=== PATIENT | male | born 1955 | race Caucasian/White ===

== ENCOUNTER 2020-01-08 20:58 | Emergency (ER) | payer MEDICARE, SELFPAY ==
--- NOTE | ~2020-01-08 | XR_ITS ---
EXAMINATION: XR chest 2V EXAM DATE: 01/08/2020 21:29 INDICATION: Shortness of breath. TECHNIQUE: Frontal and lateral projections of the chest obtained and reviewed. Comparison is made to prior examination from 08/24/2018, 02/21/2017. FINDINGS: Right basilar 5 mm density is likely calcified granuloma. The lungs are otherwise clear. There are no pleural effusions. The cardiomediastinal silhouette is within normal limits. There is no pneumothorax suspected. The bones and soft tissues are unremarkable. IMPRESSION: No acute cardiopulmonary findings. Reviewed, dictated and finalized at location G.
[2020-01-08 20:56] VITALS: BP 192/85; PULSE 114; RESP 22; TEMP 36.5; O2SAT 97
--- NOTE | 2020-01-08 21:04 | ECG_ITS ---
Measurements Intervals [place] Rate: 121 P: 77 MT: 156 QRS: -64 QRSD: 102 T: 87 QT: 326 QTc: 464 Interpretive Statements SINUS TACHYCARDIA LEFT ANTERIOR FASCICULAR BLOCK ST-T WAVE ABNORMALITY IN ANTEROLAT/LAT LEADS- CONSIDER ISCHEMIA ABNORMAL ECG Electronically Signed On 01-09-2020 7:16:09 CDT by Semaj Erickson D.O.
--- NOTE | 2020-01-08 21:06 | ED.DIZZY ---
HPI - Dizziness General Chief Complaint: Dizziness Stated Complaint: dizziness History of Present Illness HPI Narrative: Sudden onset of dizziness earlier this evening while watching TV. Described as light headedness. Worse upon standing. Associated with racing heart rate. He reports spending the day outside in 80+ degree heat. He has not been Keeping track of his blood sugar. He has been having similar episode intermittentl for the past week. He has a h/o anxiety attacks and says that this feels similar. Related Data Home Medications Medication Instructions Recorded Confirmed amlodipine 10 mg PO DAILY 09/01/19 atorvastatin [Lipitor] 20 mg PO HS 09/01/19 insulin aspart U-100 [Novolog 16 unit SUBCUT DIRECTED 09/01/19 09/01/19 Flexpen U-100 Insulin] insulin detemir U-100 [Levemir 46 unit SUBCUT HS 09/01/19 U-100 Insulin] metoprolol succinate PO 09/01/19 Allergies Allergy/AdvReac Type Severity Reaction Status Date / Time No Known Drug Allergies Allergy Unknown Unknown Verified 01/08/20 21:19 Review of Systems Review of Systems: All systems reviewed & are unremarkable except as noted in HPI and below Constitutional: Constitutional: Denies chills and Denies fever(s) Eyes: Eyes: Denies change in vision ENT: Denies vertigo and Reports dizziness Cardiovascular: Cardiovascular: Denies chest pain and Reports rapid heart rate Respiratory: Respiratory: Denies cough and Denies dyspnea Gastrointestinal: Gastrointestinal: Denies abdominal pain, Denies diarrhea, Denies nausea and Denies vomiting Musculoskeletal: Musculoskeletal: Denies back pain Neurologic: Denies confusion, Denies syncope and Denies headache(s) Psychiatric: Psychiatric: Reports anxiety PMFSH Past Medical History Medical History Anxiety and depression Diabetes HTN (hypertension) Hyperlipidemia Social History Social History Smoking status: Former smoker Alcohol intake: current Gender identity (if verbalized by the patient): Male Exam Const: General: no acute distress and alert Nutritional Appearance: obese Orientation/consciousness: patient oriented x3 HENMT: Mouth: Yes dry mucous membranes Resp: Effort & Inspection: normal respiratory effort Auscultation: clear to auscultation bilaterally Cardio: Rate: tachycardic Rhythm: regular rhythm Heart sounds: no murmurs GI: Other: Soft NTND Skin: General skin exam: normal color Rashes: no rashes Neuro: General: patient oriented x3, moves all extremities, no focal motor deficits and CN's II-XI intact bilaterally Speech: normal speech Gait exam (Neuro): Normal gait present Extrem: General: edema bilateral Psych: Affect: Anxious affect present Course Vital Signs Vital signs: Vital Signs Temperature 36.5 C 01/08/20 20:56 Pulse Rate 114 H 01/08/20 20:56 Respiratory Rate 22 H 01/08/20 20:56 Blood Pressure 192/85 H 01/08/20 20:56 Pulse Oximetry 97 01/08/20 20:56 Temperature 36.5 C 01/08/20 20:56 Pulse Rate 93 01/08/20 23:17 Respiratory Rate 18 01/08/20 23:17 Blood Pressure 130/66 01/08/20 23:17 Pulse Oximetry 95 01/08/20 23:17 MDM - Dizziness MDM Narrative Medical decision making narrative: On exam he appears dry and he is tahcycardic. I believe his hyperglycemia and spending the day in the sun likely lead to dehydration and lightheadedness, which then triggered a panic attack. After hydration and a small dose of ativan he is feeling better and ready for discharge. Medical Records Attestation: I reviewed the patient's medical records. Lab Data Attestation: I reviewed the patient's lab results. Result diagrams: 01/08/20 21:13 01/08/20 21:13 Labs: Lab Results 01/08/20 01/08/20 01/08/20 Range/Units 21:13 21:13 21:13 WBC 15.6 H (4.5-10.0) K/mm3 RBC 4.91 (4.6-6.20) M/mm3 H
[2020-01-08] MEDS: LORAZEPAM INJ 2 MG/ML VIAL 0.5 MG IV PUSH (21:13)
[2020-01-08] MEDS: SODIUM CHLORIDE 0.9% IV 1,000 ML 999 ML IV CONT (21:14)
[2020-01-08 21:20] LABS: Basophils Absolute Auto 0.1 K/mm3 (0.0-0.1); Basophils Percent Auto 0.6 % (0.2-1.2); Eosinophils Absolute Auto 0.3 K/mm3 (0-0.3); Eosinophils Percent Auto 1.7 % (0-4.4); Hematocrit 45.7 % (42.0-52.0); Hemoglobin 15.1 g/dL (14.0-18.0); Immature Granulocyte Absolute 0.07 K/mm3 (0.00-0.031); Immature Granulocyte Percent A 0.4 % (0-0.5); Lymphocytes Absolute Auto 3.61 K/mm3 (0.9-3.2); Lymphocytes Percent Auto 23.1 % (18.3-44.2); Mean Corpuscular Hemoglobin 30.8 pg (26-34); Mean Corpuscular Volume 93.1 fl (80-100); Mean Platelet Volume 9.1 fl (7.4-10.4); Monocytes Absolute Auto 0.7 K/mm3 (0.1-0.6); Monocytes Percent Auto 4.5 % (2.6-8.5); Neutrophils Absolute Auto 10.9 K/mm3 (1.3-6.7); Neutrophils Percent Auto 69.7 % (45.5-73.1); Platelet Count Result 341 k/mm3 (150-375); Red Blood Count 4.91 M/mm3 (4.6-6.20); Red Cell Distribution Width 13.7 % (11.5-14.5); White Blood Count 15.6 K/mm3 (4.5-10.0)
[2020-01-08 21:29] LABS: Prothrombin Time 12.5 Seconds (11.1-14.7)
[2020-01-08 21:30] LABS: Partial Thromboplastin Time 24.6 SECONDS (22.3-36.8)
[2020-01-08 21:33] VITALS: BP 148/61; PULSE 98; RESP 18; O2SAT 97
[2020-01-08 21:33] LABS: Alanine Aminotransferase 35 U/L (4-50); Albumin Level 4.4 g/dL (3.5-5.1); Alkaline Phosphatase 144 U/L (38-126); Aspartate Amino Transferase 33 U/L (17-59); Bilirubin,Total 1.3 mg/dL (0.2-1.3); Blood Urea Nitrogen 12 mg/dL (9-20); Calcium 9.1 mg/dL (8.4-10.2); Carbon Dioxide 26 mmol/L (22-30); Chloride 101 mmol/L (98-107); Estimated CRCL calculation 77 ml/min; Estimated Glomerular Filt Rate > 60; Glucose 242 mg/dL (75-110); Magnesium 1.8 mg/dL (1.6-2.3); Potassium 3.7 mmol/L (3.4-5.0); Sodium 138 mmol/L (137-145)
[2020-01-08 21:44] LABS: NT Pro B Type Natriuretic Pept 109 PG/ML (5-100); Troponin I < 0.012 ng/mL (0.000-0.034)
[2020-01-08 21:47] LABS: Beta-Hydroxybutyrate/Acetoacetate 0.09 mmol/L (0.02-0.27)
[2020-01-08 22:22] VITALS: BP 130/66; PULSE 90; RESP 21; O2SAT 94
[2020-01-08 23:17] VITALS: BP 130/66; PULSE 93; RESP 18; O2SAT 95
== END 2020-01-08 23:20 | disposition home or self-care (01) ==
PROVIDERS: Emergency Provider Emergency Medicine
DX: E86.0 Dehydration (principal); F41.9 Anxiety disorder, unspecified; E11.65 Type 2 diabetes mellitus with hyperglycemia; I10 Essential (primary) hypertension; E78.5 Hyperlipidemia, unspecified; Z87.891 Personal history of nicotine dependence; Z79.4 Long term (current) use of insulin; R00.0 Tachycardia, unspecified; I44.4 Left anterior fascicular block
CPT/HCPCS: 36415; 71046; 80053; 82010; 83735; 83880; 84484; 85025; 85610; 85730; 93005; 96361; 96374; 99284; J2060; J7030

== ENCOUNTER 2020-03-24 14:33 | Emergency (ER) | payer MEDICARE, SELFPAY ==
[2020-03-24 14:45] VITALS: BP 144/62; PULSE 66; RESP 22; TEMP 36.8; O2SAT 97
--- NOTE | 2020-03-24 15:33 | ED.GENADULT ---
HPI - General Adult General Chief complaint: Eye Problems Stated complaint: Eye Pain Time Seen by Provider: 03/24/20 15:33 Source: patient Mode of arrival: ambulatory Limitations: no limitations History of Present Illness HPI narrative: 65-year-old male patient presents to the [facility] with complaints of left eye pain x4-week. Patient states it is been somewhat itchy, as well as some clear drainage. Denies any vision changes. Denies any injury to the eye that he is aware of. Related Data Home Medications Medication Instructions Recorded Confirmed amlodipine 10 mg PO DAILY 09/01/19 03/24/20 atorvastatin [Lipitor] 20 mg PO HS 09/01/19 03/24/20 insulin aspart U-100 [Novolog 16 unit SUBCUT DIRECTED 09/01/19 03/24/20 Flexpen U-100 Insulin] metoprolol succinate 25 mg PO DAILY 09/01/19 03/24/20 alprazolam 0.25 mg PO DAILY 03/24/20 03/24/20 sertraline 50 mg PO DAILY 03/24/20 03/24/20 Allergies Allergy/AdvReac Type Severity Reaction Status Date / Time No Known Drug Allergies Allergy Unknown Unknown Verified 01/08/20 21:19 Review of Systems Review of Systems: Narrative: CONSTITUTIONAL: Denies fever, chills, or sweats. EYES: Denies visual changes, positive left eye redness and clear discharge. ENT: Denies rhinorrhea, congestion, sore throat, or otalgia. CARDIOVASCULAR: Denies chest pain, palpitations, or edema. RESPIRATORY: Denies cough or dyspnea. GASTROINTESTINAL: Denies abdominal pain, nausea, vomiting, or diarrhea. GENITOURINARY: Denies dysuria or hematuria. SKIN: Denies rash or itching. MUSCULOSKELETAL: Denies back pain, joint pain, or myalgia. NEUROLOGIC: Denies headache, numbness, or weakness. PSYCHIATRIC: Denies anxiety or depression. [facility] Past Medical History Medical History Anxiety and depression Diabetes HTN (hypertension) Hyperlipidemia Social History Social History Smoking status: Former smoker Alcohol intake: current Gender identity (if verbalized by the patient): Male Comments At the time of my signature I agree with nursing past medical history, surgical, social, and family history. There is no relevant family history pertinent to the presenting complaint. Exam Narrative: Exam Narrative: GENERAL: Well-appearing, well-nourished, and in no acute distress. HEAD: Normocephalic, atraumatic. EYES: PERRLA and EOM intact without limitation or complaint of pain, no periorbital soft tissue swelling ,no erythema, warmth or tenderness noted, no obvious deformity. No crusting or swelling.no tearing or draining.No photophobia. No nystagmus No FB or lesion on lid eversion. no obvious FB or hyphens/hypopyon. injection to sclera of left eye. Lids and lashes clear. Upon dye in the left eye there was a small corneal abrasion noted to the 9:00 area. ENT: Nares clear, no rhinorrhea or epistaxis. Mucous membranes moist. NECK: Supple. No lymphadenopathy CHEST: Clear to auscultation. No respiratory distress. HEART: Regular rate and rhythm. No murmur heard. Normal peripheral pulses. ABDOMEN: Soft, nontender, nondistended, normal active bowel sounds. EXTREMITIES: Normal range of motion. No edema. SKIN: Warm, dry, no rash. NEURO: No focal deficits. Alert and oriented x3. Course Vital Signs Vital signs: Vital Signs Temperature 36.8 C 03/24/20 14:45 Pulse Rate 66 03/24/20 14:45 Respiratory Rate 22 H 03/24/20 14:45 Blood Pressure 144/62 H 03/24/20 14:45 Pulse Oximetry 97 03/24/20 14:45 Temperature 36.8 C 03/24/20 14:45 Pulse Rate 66 03/24/20 14:45 Respiratory Rate 22 H 03/24/20 14:45 Blood Pressure 144/62 H 03/24/20 14:45 Pulse Oximetry 97 03/24/20 14:45 Vital signs reviewed. The patient has been informed that they may have pre-hypertension or Hypertension based on a BP reading in the department. I recommend that the patient call the primary care provider listed on
== END 2020-03-24 15:45 | disposition home or self-care (01) ==
PROVIDERS: Emergency Provider Nurse Practitioner Family
DX: S05.02XA Injury of conjunctiva and corneal abrasion without foreign body, left eye, initial encounter (principal); X58.XXXA Exposure to other specified factors, initial encounter; F41.9 Anxiety disorder, unspecified; F32.9 Major depressive disorder, single episode, unspecified; E11.9 Type 2 diabetes mellitus without complications; I10 Essential (primary) hypertension; E78.5 Hyperlipidemia, unspecified; Z87.891 Personal history of nicotine dependence; Z79.4 Long term (current) use of insulin
CPT/HCPCS: 99213; A9270; G0463

== ENCOUNTER 2020-10-18 13:13 | Emergency (ER) | payer MEDICARE, SELFPAY ==
--- NOTE | ~2020-10-18 | XR_ITS ---
EXAMINATION: XR chest 2V DATE: 10/18/2020 13:49 INDICATION: Weakness TECHNIQUE: PA and lateral views of the chest were obtained. COMPARISON: Chest radiograph dated 01/08/2020 FINDINGS: The lungs remain clear with no focal airspace opacities, pulmonary edema, pleural effusion or pneumot horax. The cardiomediastinal silhouette is normal. Mild thoracic spondylosis. IMPRESSION: 1. No acute cardiopulmonary disease. Reviewed, dictated and finalized at location B. CONTROLLER
--- NOTE | ~2020-10-18 | CT_ITS ---
EXAMINATION: CT abdomen pelvis w con EXAM DATE: 10/18/2020 16:08 INDICATION: Abdominal pain, nausea. Symptoms one month. Generalized weakness. TECHNIQUE: Spiral CT of the abdomen and pelvis was performed following intravenous injection of 100 m L Omnipaque 350. Axial, coronal and sagittal images were reviewed. The dose-length product (DLP) fo r this examination was 1320.38 mGy-cm. The exposure was tailored according to patient size (auto mA exposure control), and iterative reconstruction (ASIR) was used as additional dose reduction techniqu e. There is no prior study for comparison. FINDINGS: There is tran mesentery appearance without mesenteric mass or lymphadenopathy. The mesente saul vasculature enhances normally. The liver, spleen, adrenal glands and pancreas are unremarkable. Gallbladder is unremarkable. No biliary obstruction. Portal and splenic veins are patent. Kidneys enhance symmetrically. There is no hydronephrosis. Exophytic 1.5 cm left renal cyst, and a smaller cyst in the lower pole. The prostate is unremarkable. The bladder is unremarkable. There is no ret roperitoneal or pelvic lymphadenopathy. There is mild scattered arteriosclerotic disease. The appendix is normal. There is mild sigmoid colonic diverticulosis. There is no adjacent inflammat ory change to suggest diverticulitis. The stomach and small bowel are unremarkable. There is expecte d amount of colonic stool. No free intraperitoneal gas. The heart is normal in size. There are n o pericardial or pleural effusions. There are bibasilar linear opacities, subsegmental atelectasis. There are no osteoblastic or osteolytic lesions identified. IMPRESSION: 1. Tran mesentery, nonspecific finding. No mesenteric lymphadenopathy, mass or venous thrombosis. 2. No acute findings. Reviewed, dictated and finalized at location A. RN IMPRESSION: 1. Tran mesentery, nonspecific finding. No mesenteric lymphadenopathy, mass o r venous thrombosis. 2. No acute findings.
[2020-10-18 13:25] VITALS: BP 143/64; PULSE 76; RESP 16; TEMP 36.2; O2SAT 95
[2020-10-18 13:41] LABS: Basophils Absolute Auto 0.1 K/mm3 (0.0-0.1); Basophils Percent Auto 0.7 % (0.2-1.2); Eosinophils Absolute Auto 0.2 K/mm3 (0-0.3); Eosinophils Percent Auto 1.5 % (0-4.4); Hematocrit 48.5 % (42.0-52.0); Hemoglobin 16.4 g/dL (14.0-18.0); Immature Granulocyte Absolute 0.05 K/mm3 (0.00-0.031); Immature Granulocyte Percent A 0.4 % (0-0.5); Lymphocytes Absolute Auto 3.95 K/mm3 (0.9-3.2); Lymphocytes Percent Auto 29.5 % (18.3-44.2); Mean Corpuscular HGB Conc 33.8 g/dl (32-36); Mean Corpuscular Hemoglobin 31.1 pg (26-34); Mean Corpuscular Volume 91.9 fl (80-100); Mean Platelet Volume 9.4 fl (7.4-10.4); Monocytes Absolute Auto 0.9 K/mm3 (0.1-0.6); Monocytes Percent Auto 6.8 % (2.6-8.5); Neutrophils Absolute Auto 8.2 K/mm3 (1.3-6.7); Neutrophils Percent Auto 61.1 % (45.5-73.1); Platelet Count Result 329 k/mm3 (150-375); Red Blood Count 5.28 M/mm3 (4.6-6.20); Red Cell Distribution Width 13.7 % (11.5-14.5); White Blood Count 13.4 K/mm3 (4.5-10.0)
--- NOTE | 2020-10-18 13:59 | ECG_ITS ---
Measurements Intervals [place] Rate: 72 P: 49 MS: 157 QRS: -50 QRSD: 100 T: 85 QT: 387 QTc: 424 Interpretive Statements SINUS RHYTHM LEFT ANTERIOR FASCICULAR BLOCK BORDERLINE ST-T WAVE ABNORMALITY- HIGH LATERAL LEADS ABNORMAL ECG Electronically Signed On 10-18-2020 18:23:32 DEVELOPMENT DISABILITY SPECIALIST by Semaj Erickson D.O.
--- NOTE | 2020-10-18 14:00 | ED.WEAKNESS ---
HPI - Weakness General Chief complaint: Weakness Stated complaint: weakness Time Seen by Provider: 10/18/20 13:37 Source: RN notes reviewed History of Present Illness HPI Narrative: Patient presents emergency department from home for weakness. Patient states since starting September 22 he has been having nausea he states that with the nausea he has been having minimal intake of foods and liquids and has been progressively becoming more weak patient states he did call on discussed with his PCP who prescribed Zofran and it was in over the telephone visit with the last dose of Zofran 2 hours ago he denies any fevers or chills vision changes, chest pain, shortness of breath, abdominal pain, vomiting, diarrhea or any other symptoms Related Data Home Medications Medication Instructions Recorded Confirmed amlodipine 10 mg PO DAILY 09/01/19 03/24/20 atorvastatin [Lipitor] 20 mg PO HS 09/01/19 03/24/20 insulin aspart U-100 [Novolog 16 unit SUBCUT DIRECTED 09/01/19 03/24/20 Flexpen U-100 Insulin] metoprolol succinate 25 mg PO DAILY 09/01/19 03/24/20 alprazolam 0.25 mg PO DAILY 03/24/20 03/24/20 sertraline 50 mg PO DAILY 03/24/20 03/24/20 Allergies Allergy/AdvReac Type Severity Reaction Status Date / Time No Known Drug Allergies Allergy Unknown Unknown Verified 01/08/20 21:19 Review of Systems Review of Systems: Narrative: Gen.: Denies fevers or chills Eyes: Denies eye pain or visual change ENT: Denies congestion Respiratory: Denies shortness of breath or cough CV: Denies chest pain or palpitations GI: Denies abdominal pain emesis or diarrhea reports nausea Musculoskeletal: Denies back pain or muscle pain Neuro: Reports weakness Skin: Denies rash Except as documented, all other systems reviewed and negative [facility]LY [facility] Past Medical History Medical History (Updated 10/18/20 @ 17:06 by Rafael Asencio DO) Anxiety and depression Diabetes HTN (hypertension) Hyperlipidemia Social History Social History Smoking status: Former smoker Alcohol intake: current Gender identity (if verbalized by the patient): Male Exam Narrative: Exam Narrative: APPEARANCE: No acute distress, nontoxic, resting in bed EYES: EOMI HEENT: Normocephalic, atraumatic, OMM RESPIRATORY: No respiratory distress Clear to auscultation bilaterally with no rhonchi wheezing or rales. CARDIOVASCULAR: Regular rate and rhythm without murmurs rubs or gallops. ABDOMINAL: Soft, nontender, nondistended, no rebound or guarding MUSCULOSKELETAl: Moves all extremities. No clubbing, cyanosis or edema. NEURO: Awake and alert. Following commands, speech normal, no focal deficits SKIN:: Warm, dry. No rashes lesions or abrasions PSYCHIATRIC: Normal affect/mood, Course Course Emergency Course: Patient able to get up and ambulate in ED with no difficulty Discussed with patient results of workup and diagnosis. Discussed need for follow-up with primary care, proper use of medication, and reasons to return to the emergency department. Patient understands and agrees to current treatment plan Vital Signs Vital signs: Vital Signs Temperature 97.2 F L 10/18/20 13:25 Pulse Rate 76 10/18/20 13:25 Respiratory Rate 16 10/18/20 13:25 Blood Pressure 143/64 H 10/18/20 13:25 Pulse Oximetry 95 10/18/20 13:25 Temperature 98.1 F 10/18/20 15:15 Pulse Rate 64 10/18/20 15:15 Respiratory Rate 16 10/18/20 15:15 Blood Pressure 153/62 H 10/18/20 15:15 Pulse Oximetry 96 10/18/20 15:15 MDM - Weakness Lab Data Result diagrams: 10/18/20 13:33 10/18/20 14:20 Labs: Lab Results 10/18/20 10/18/20 10/18/20 Range/Units 13:33 14:20 14:20 WBC 13.4 H (4.5-10.0) K/mm3 RBC 5.28 (4.6-6.20) M/mm3 Hgb 16.4 (14.0-18.0) g/dL Hct 48.5 (42.0-52.0) % MCV 91.9 (80-100) fl MCH 31.1 (26-34) pg MCHC 33.8 (32-36) g/dl RDW 13.7 (11.5-14.5) %
[2020-10-18 14:57] LABS: Add Urine Microscopic? YES; Appearance Urine Clear (Clear); Bilirubin Urine Negative (Negative); Blood Urine Negative (Negative); Color Urine Yellow (Yellow); Glucose Urine UA Negative (Negative); Ketones Urine Negative (Negative); Leukocyte Esterase Ur Negative LEU/UL (Negative); Mucus Urine Rare /lpf; Nitrate Urine Negative (Negative); Protein Urine 1+ mg/dL (Negative); RBC Urine 0-2 /hpf (0-2); Specific Grav Ur 1.013 (1.001-1.035); Squamous Epithelial Cell Urine Rare /hpf (Few); WBC Urine 0-3 /hpf
[2020-10-18 15:04] LABS: Alanine Aminotransferase 38 U/L (4-50); Albumin Level 3.8 g/dL (3.5-5.1); Alkaline Phosphatase 106 U/L (38-126); Anion Gap 5 mmol/L (8-16); Aspartate Amino Transferase 31 U/L (17-59); Bilirubin,Total 1.3 mg/dL (0.2-1.3); Blood Urea Nitrogen 9 mg/dL (9-20); Calcium 8.8 mg/dL (8.4-10.2); Carbon Dioxide 27 mmol/L (22-30); Chloride 104 mmol/L (98-107); Estimated CRCL calculation 80 ml/min; Estimated Glomerular Filt Rate > 60; Glucose 138 mg/dL (75-110); Lipase 100 U/L (23-300); Sodium 136 mmol/L (137-145)
[2020-10-18 15:15] VITALS: BP 153/62; PULSE 64; RESP 16; TEMP 36.7; O2SAT 96
[2020-10-18] MEDS: SODIUM CHLORIDE 0.9% IV 1,000 ML 999 ML IV CONT (15:20)
[2020-10-18 17:20] VITALS: BP 125/70; PULSE 76; RESP 15; TEMP 36.7; O2SAT 94
== END 2020-10-18 17:37 | disposition home or self-care (01) ==
PROVIDERS: Emergency Provider Emergency Medicine
DX: R53.1 Weakness (principal); R11.0 Nausea; E11.9 Type 2 diabetes mellitus without complications; I10 Essential (primary) hypertension; E78.5 Hyperlipidemia, unspecified; F41.9 Anxiety disorder, unspecified; F32.9 Major depressive disorder, single episode, unspecified; Z79.4 Long term (current) use of insulin; Z87.891 Personal history of nicotine dependence; I44.4 Left anterior fascicular block; R94.31 Abnormal electrocardiogram [ECG] [EKG]
CPT/HCPCS: 36415; 71046; 74177; 80053; 81001; 83690; 85025; 93005; 96360; 99284; J7030; Q9967

== ENCOUNTER 2021-05-15 07:11 | Outpatient (CLI) | payer MEDICARE, SELFPAY ==
[2021-05-15 07:30] LABS: Hematocrit 43.4 % (42.0-52.0); Hemoglobin 13.9 g/dL (14.0-18.0); Mean Corpuscular Hemoglobin 31.9 pg (26-34); Mean Corpuscular Volume 99.5 fl (80-100); Mean Platelet Volume 9.1 fl (7.4-10.4); Platelet Count Result 250 k/mm3 (150-375); Red Blood Count 4.36 M/mm3 (4.6-6.20); Red Cell Distribution Width 13.6 % (11.5-14.5); White Blood Count 13.2 K/mm3 (4.5-10.0)
[2021-05-15 07:42] LABS: Alanine Aminotransferase 46 U/L (4-50); Albumin Level 4.3 g/dL (3.5-5.1); Alkaline Phosphatase 99 U/L (38-126); Anion Gap 10 mmol/L (8-16); Aspartate Amino Transferase 32 U/L (17-59); Bilirubin,Total 1.1 mg/dL (0.2-1.3); Blood Urea Nitrogen 15 mg/dL (9-20); Carbon Dioxide 27 mmol/L (22-30); Chloride 102 mmol/L (98-107); Cholesterol 110 mg/dL (0-200); Estimated Glomerular Filt Rate > 60; Glucose 153 mg/dL (65-110); HDL Direct 25 mg/dL; Potassium 4.4 mmol/L (3.4-5.0); Sodium 139 mmol/L (137-145); Triglycerides 93 mg/dL (<150)
[2021-05-15 07:53] LABS: LDL Cholesterol Direct 67 mg/dL
[2021-05-15 08:10] LABS: Prostate Specific Antigen 2.2 ng/mL (< OR = 4.0)
[2021-05-15 08:44] LABS: Folic Acid 5.2 ng/mL (2.76->20)
== END 2021-05-15 07:12 | disposition home or self-care (01) ==
PROVIDERS: PCP Internal Medicine; Visit Provider Physician Assistant
DX: Z12.5 Encounter for screening for malignant neoplasm of prostate (principal); E11.9 Type 2 diabetes mellitus without complications; R53.83 Other fatigue
CPT/HCPCS: 36415; 80053; 80061; 82607; 82746; 84153; 84443; 85027; G0103

== ENCOUNTER 2021-06-26 12:08 | Emergency (ER) | payer MEDICARE, SELFPAY ==
[2021-06-26 12:19] VITALS: BP 144/62; PULSE 77; RESP 18; TEMP 36.6; O2SAT 97
[2021-06-26 12:25] VITALS: BP 144/62; PULSE 77; RESP 18; TEMP 36.6; O2SAT 97
--- NOTE | 2021-06-26 12:31 | ED.SKABFB ---
HPI - Skin/Abscess/Foreign Bdy General Chief complaint: Skin/Abscess/Foreign Body Stated complaint: Bite Time Seen by Provider: 06/26/21 12:30 Source: patient and RN notes reviewed Mode of arrival: ambulatory Limitations: no limitations History of Present Illness HPI narrative: Mike is a 66-year-old male [facility] Patient has a small bite on his left perfect left reina. Area is approximately 1 cm with minimal erythema. Patient states 3 days ago he was cleaning out a storage shed is unsure if he was bit or hit it on something. Patient denies any fever, chills, or any other symptoms. Patient is a diabetic so he just wanted to get the wound checked out MD complaint: insect bite/sting Related Data Home Medications Medication Instructions Recorded Confirmed insulin aspart U-100 [Novolog 16 unit SUBCUT DIRECTED 09/01/19 06/26/21 Flexpen U-100 Insulin] metoprolol succinate 25 mg PO DAILY 09/01/19 06/26/21 alprazolam 0.25 mg PO DAILY 03/24/20 06/26/21 insulin lispro 100 unit/mL 5.5 unit SUBCUT QHS 10/27/20 06/26/21 subcutaneous half-unit pen empagliflozin [Jardiance] 10 mg PO BID 06/26/21 06/26/21 Allergies Allergy/AdvReac Type Severity Reaction Status Date / Time No Known Drug Allergies Allergy Unknown Unknown Verified 06/26/21 12:18 Review of Systems Review of Systems: CONSTITUTIONAL: Denies body aches, fever, chills, or sweats. EYES: Denies visual changes, redness, or discharge. ENT: Denies rhinorrhea, congestion, sore throat, or otalgia. CARDIOVASCULAR: Denies chest pain, palpitations, or edema. RESPIRATORY: Denies cough or dyspnea. GASTROINTESTINAL: Denies abdominal pain, nausea, vomiting, or diarrhea. GENITOURINARY: Denies dysuria or hematuria. SKIN: Denies rash, itching, bite left reina MUSCULOSKELETAL: Denies back pain, joint pain, or myalgia. NEUROLOGIC: Denies headache, numbness, tingling, or weakness. PSYCH: Denies depression or anxiety. [facility] Past Medical History Medical History (Updated 06/26/21 @ 12:43 by JOSEPH Benavidez) Anxiety and depression Diabetes HTN (hypertension) Hyperlipidemia Family History Family History Father Heart disease Mother Depression Social History Social History Smoking status: Former smoker Alcohol intake: current Gender identity (if verbalized by the patient): Male Comments At time of signature, I have reviewed and agree with nursing past medical, surgical, social and family history unless otherwise noted. Please see nursing chart for further information. There is no relevant family history pertinent to the presenting complaint Exam Narrative: GENERAL: Well-appearing, well-nourished, and in no acute distress. HEAD: Normocephalic, atraumatic. EYES: EOMI. No redness or drainage. Conjunctivae normal. ENT: Mucous membranes pink and moist. Nares clear. No rhinorrhea. TMs normal bilaterally. Throat normal. Uvula midline. NECK: Normal AROM. Supple. No lymphadenopathy. CHEST: No respiratory distress. MUSCULOSKELETAL: No bony tenderness. 1cm raised area left reina, scabbed center, minimal erythema, no edema, no drainage, no increase in size. EXTREMITIES: Normal range of motion. No edema. SKIN: Warm, dry, no rash. Capillary refill normal. Normal skin turgor. NEURO: No focal deficits. Alert and oriented x3. Gait steady. PSYCH: Normal affect. No signs of depression or anxiety. Course Vital Signs Vital signs: Vital Signs Temperature 36.6 C 06/26/21 12:19 Pulse Rate 77 06/26/21 12:19 Respiratory Rate 18 06/26/21 12:19 Blood Pressure 144/62 H 06/26/21 12:19 Pulse Oximetry 97 06/26/21 12:19 Temperature 36.6 C 06/26/21 12:25 Pulse Rate 77 06/26/21 12:25 Respiratory Rate 18 06/26/21 12:25 Blood Pressure 144/62 H 06/26/21 12:25 Pulse Oximetry 97 06/26/21 12:25 Re
== END 2021-06-26 12:45 | disposition home or self-care (01) ==
PROVIDERS: Emergency Provider Nurse Practitioner Family; PCP Internal Medicine
DX: S80.862A Insect bite (nonvenomous), left lower leg, initial encounter (principal); W57.XXXA Bitten or stung by nonvenomous insect and other nonvenomous arthropods, initial encounter; Z87.891 Personal history of nicotine dependence; E11.9 Type 2 diabetes mellitus without complications; I10 Essential (primary) hypertension; E78.5 Hyperlipidemia, unspecified; F41.9 Anxiety disorder, unspecified; Z79.4 Long term (current) use of insulin; F32.A Depression, unspecified
CPT/HCPCS: 99211; G0463

== ENCOUNTER 2022-01-01 09:16 | Emergency (ER) | payer MEDICARE, SELFPAY ==
[2022-01-01 09:24] VITALS: BP 142/62; PULSE 69; RESP 14; TEMP 36.5; O2SAT 95
--- NOTE | 2022-01-01 09:45 | ED.LOWEXIN ---
HPI - Extremity Injury (Lower) General Chief Complaint: Upper Respiratory Infection Stated Complaint: Chest Congestion/Cough Time Seen by Provider: 01/01/22 09:45 Source: patient Mode of arrival: ambulatory Limitations: no limitations History of Present Illness HPI Narrative: Mr. Anders is a 66-year-old male patient presenting to the clinic today with complaints of cough and congestion x2 days. He reports he has been coughing so hard that is causing some stomach pain. History of bronchitis in the past. He denies any known exposure to COVID, flu, or strep. He denies any fever or chills. He says he has a scratchy throat from some drainage going in the back of his throat. Related Data Home Medications Medication Instructions Recorded Confirmed insulin aspart U-100 [Novolog 16 unit SUBCUT DIRECTED 09/01/19 11/07/21 Flexpen U-100 Insulin] alprazolam 0.25 mg PO DAILY 03/24/20 11/07/21 insulin lispro 100 unit/mL 5.5 unit SUBCUT QHS 10/27/20 11/07/21 subcutaneous half-unit pen empagliflozin [Jardiance] 10 mg PO BID 06/26/21 11/07/21 Allergies Allergy/AdvReac Type Severity Reaction Status Date / Time No Known Drug Allergies Allergy Unknown Unknown Verified 01/01/22 09:49 Review of Systems Review of Systems: Pertinent positives per HPI. Patient denies any fever, chills, rash, headache, visual changes, dizziness, shortness of breath, chest pain, palpitations, nausea, vomiting, diarrhea, constipation, abdominal pain, or any urinary issues. [facility] Past Medical History Medical History Anxiety and depression Diabetes HTN (hypertension) Hyperlipidemia Family History Family History Father Heart disease Mother Depression Social History Social History Smoking status: Former smoker Alcohol intake: current Gender identity (if verbalized by the patient): Male Comments At the time of my signature, I reviewed and agree with the nursing past medical, surgical, social, and family history. There is no relevant family history pertinent to the patient complaint. Exam Narrative: General: Well-developed, well nourished, in no apparent distress Head: Normocephalic, atraumatic Eyes: Pupils equally round and reactive to light bilaterally, EOM intact, sclera and conjunctive clear, no discharge, lids normal Ears: TMs intact and dull, ear canals clear, no drainage, grossly hearing normal. Nose: Nares patent, clear nasal discharge, no inflammation, no sinus tenderness. Mouth: Oropharynx without lesions or masses, good dentition, MMM. Oropharynx red with tonsil stone to the right Neck: Supple, trachea midline, no enlargement of anterior or posterior cervical nodes, no thyroid masses or goiter palpable. Cardio: Regular rate and rhythm, s1 and s2 normal, no murmur appreciated. Resp: Inspiratory and expiratory wheezing throughout lung gonzalez posteriorly, no rhonchi, rales, or rubs Course Course Emergency Course: Portions of this record may have been created with voice recognition software. Level of Care: Express Care Visit Vital Signs Vital signs: Vital Signs Temperature 36.5 C 01/01/22 09:24 Pulse Rate 69 01/01/22 09:24 Respiratory Rate 14 01/01/22 09:24 Blood Pressure 142/62 H 01/01/22 09:24 Pulse Oximetry 95 01/01/22 09:24 Temperature 36.5 C 01/01/22 09:24 Pulse Rate 69 01/01/22 09:24 Respiratory Rate 14 01/01/22 09:24 Blood Pressure 142/62 H 01/01/22 09:24 Pulse Oximetry 95 01/01/22 09:24 Vital signs reviewed MDM - Extremity Injury (Lower) MDM Narrative Medical decision making narrative: At the time of visit patient is resting comfortably on the exam table. Patient has expiratory wheezing throughout his lung gonzalez. He also has a clear nasal drainage and postnasal drip. I suspect the patient
== END 2022-01-01 09:52 | disposition home or self-care (01) ==
PROVIDERS: Emergency Provider Nurse Practitioner Family; PCP Internal Medicine
DX: J40 Bronchitis, not specified as acute or chronic (principal); E11.9 Type 2 diabetes mellitus without complications; I10 Essential (primary) hypertension; E78.5 Hyperlipidemia, unspecified; F41.9 Anxiety disorder, unspecified; F32.A Depression, unspecified; Z87.891 Personal history of nicotine dependence; Z79.4 Long term (current) use of insulin
CPT/HCPCS: 99213; G0463

== ENCOUNTER 2022-04-16 15:31 | Emergency (ER) | payer MEDICARE, SELFPAY ==
[2022-04-16 15:33] VITALS: BP 165/75; PULSE 90; RESP 13; TEMP 36.8; O2SAT 96
--- NOTE | 2022-04-16 15:38 | ECG_ITS ---
Measurements Intervals [place] Rate: 82 P: 51 [place]: 155 QRS: -35 QRSD: 101 T: 81 QT: 367 QTc: 429 Interpretive Statements SINUS RHYTHM MARKED LEFT AXIS DEVIATION [QRS AXIS < -30] PATTERN CONSISTENT WITH PULMONARY DISEASE COMPARED TO ECG 10/18/2020 17:26:41 NO SIGNIFICANT CHANGE Electronically Signed On 04-16-2022 20:31:33 CDT by Natacha Funes M.D.
--- NOTE | 2022-04-16 15:39 | ED.GENADULT ---
HPI - General Adult General Chief complaint: Weakness Stated complaint: hypoglycemia Time Seen by Provider: 04/16/22 15:33 History of Present Illness HPI narrative: Pt felt a little dizzy and his implanted glucose device read 160 and his finger stick was off by 30 and he got anxious. EMS was in 170's. Pt feels better now Related Data Home Medications Medication Instructions Recorded Confirmed insulin aspart U-100 100 unit/mL 16 unit subcut DIRECTED 09/01/19 01/01/22 (3 mL) subcutaneous pen (Novolog Flexpen U-100 Insulin aspart) alprazolam 0.25 mg tablet 0.25 mg PO DAILY 03/24/20 01/01/22 insulin lispro 100 unit/mL 5.5 unit subcut QHS 10/27/20 01/01/22 subcutaneous half-unit pen (Humalog Jose KwikPen (U-100)) empagliflozin 10 mg tablet 10 mg PO BID 06/26/21 01/01/22 (Jardiance) Allergies Allergy/AdvReac Type Severity Reaction Status Date / Time No Known Drug Allergies Allergy Unknown Unknown Verified 01/01/22 09:49 Review of Systems Review of Systems: All systems reviewed & are unremarkable except as noted in HPI and below PMFSH Past Medical History Medical History (Updated 04/16/22 @ 17:24 by Wilmer Bee III, DO) Anxiety and depression Diabetes HTN (hypertension) Hyperlipidemia Family History Family History Father Heart disease Mother Depression Social History Social History Smoking status: Former smoker Alcohol intake: current Gender identity (if verbalized by the patient): Male Exam Const: General: healthy appearing Nutritional Appearance: well nourished Orientation/consciousness: patient oriented x3 Limitations: no limitations HENMT: Head: normal to inspection Eyes: Conjunctivae: conjunctivae normal EOM: EOMs intact bilaterally Chest: Chest palpation & inspection: normal inspection of the chest Resp: Effort & Inspection: normal respiratory effort Auscultation: clear to auscultation bilaterally Cardio: Rate: regular rate Rhythm: regular rhythm GI: GI Palp: Yes Soft to palpation Auscultation: normal bowel sounds Skin: General skin exam: normal color Rashes: no rashes Wounds: no wounds Neuro: General: patient oriented x3 Speech: normal speech Extrem: General: normal to inspection and no clubbing, cyanosis or edema Psych: Mental Status: mental status grossly normal Affect: normal affect Attitude: cooperative Course Vital Signs Vital signs: Vital Signs Temperature 98.2 F 04/16/22 15:33 Pulse Rate 90 04/16/22 15:33 Respiratory Rate 13 04/16/22 15:33 Blood Pressure 165/75 H 04/16/22 15:33 Pulse Oximetry 96 04/16/22 15:33 Temperature 98.2 F 04/16/22 15:33 Pulse Rate 99 04/16/22 18:29 Respiratory Rate 16 04/16/22 18:29 Blood Pressure 110/82 04/16/22 18:29 Pulse Oximetry 100 04/16/22 18:29 Medical Decision Making Vital Signs Vital Signs: Vital Signs Temperature 98.2 F 04/16/22 15:33 Pulse Rate 90 04/16/22 15:33 Respiratory Rate 13 04/16/22 15:33 Blood Pressure 165/75 H 04/16/22 15:33 Pulse Oximetry 96 04/16/22 15:33 Temperature 98.2 F 04/16/22 15:33 Pulse Rate 99 04/16/22 18:29 Respiratory Rate 16 04/16/22 18:29 Blood Pressure 110/82 04/16/22 18:29 Pulse Oximetry 100 04/16/22 18:29 Lab Data Result diagrams: 04/16/22 15:47 04/16/22 15:47 Labs: Lab Results 04/16/22 04/16/22 04/16/22 Range/Units 15:35 15:47 15:47 WBC 12.3 H (4.5-10.0) K/mm3 RBC 5.43 (4.6-6.20) M/mm3 Hgb 16.6 (14.0-18.0) g/dL Hct 51.5 (42.0-52.0) % MCV 94.8 (80-100) fl MCH 30.6 (26-34) pg MCHC 32.2 (32-36) g/dl RDW 14.8 H (11.5-14.5) % Plt Count 304 (150-375) k/mm3 MPV 9.0 (7.4-10.4) fl Immature Gran % (Auto) 0.4 (0-0.5) % Neut % (Auto) 70.1 (45.5-73.1) % Lymph %
[2022-04-16 15:53] LABS: Basophils Absolute Auto 0.1 K/mm3 (0.0-0.1); Basophils Percent Auto 0.6 % (0.2-1.2); Eosinophils Absolute Auto 0.2 K/mm3 (0-0.3); Eosinophils Percent Auto 1.5 % (0-4.4); Hematocrit 51.5 % (42.0-52.0); Hemoglobin 16.6 g/dL (14.0-18.0); Immature Granulocyte Absolute 0.05 K/mm3 (0.00-0.031); Immature Granulocyte Percent A 0.4 % (0-0.5); Lymphocytes Absolute Auto 2.75 K/mm3 (0.9-3.2); Lymphocytes Percent Auto 22.4 % (18.3-44.2); Mean Corpuscular HGB Conc 32.2 g/dl (32-36); Mean Corpuscular Hemoglobin 30.6 pg (26-34); Mean Corpuscular Volume 94.8 fl (80-100); Monocytes Absolute Auto 0.6 K/mm3 (0.1-0.6); Neutrophils Absolute Auto 8.6 K/mm3 (1.3-6.7); Neutrophils Percent Auto 70.1 % (45.5-73.1); Platelet Count Result 304 k/mm3 (150-375); Red Blood Count 5.43 M/mm3 (4.6-6.20); Red Cell Distribution Width 14.8 % (11.5-14.5); White Blood Count 12.3 K/mm3 (4.5-10.0)
[2022-04-16 16:03] LABS: Alanine Aminotransferase 31 U/L (6-50); Albumin Level 4.2 g/dL (3.5-5.1); Alkaline Phosphatase 124 U/L (38-126); Anion Gap 13 mmol/L (8-16); Aspartate Amino Transferase 34 U/L (17-59); Bilirubin,Total 0.8 mg/dL (0.2-1.3); Blood Urea Nitrogen 12 mg/dL (9-20); Carbon Dioxide 25 mmol/L (22-30); Chloride 101 mmol/L (98-107); Estimated CRCL calculation 75 ml/min; Estimated Glomerular Filt Rate > 60; Glucose 224 mg/dL (65-110); Potassium 3.9 mmol/L (3.4-5.0); Sodium 139 mmol/L (137-145)
[2022-04-16 16:34] LABS: Glucose Point of Care 251 mg/dl (65-105)
[2022-04-16] MEDS: SODIUM CHLORIDE 0.9% IV 1,000 ML 999 ML IV CONT (17:03)
--- NOTE | 2022-04-16 17:03 | PC.NURSE ---
Pt requests insulin dose to be adjusted to 3 units per his sliding scale. Dr. Bee aware and ok with new order.
[2022-04-16] MEDS: INSULIN HUMAN REGULAR (*BKC) 100 UNITS/ML IV PUSH (17:04)
[2022-04-16 17:07] VITALS: BP 141/59; PULSE 69; RESP 19; O2SAT 96
[2022-04-16 18:29] VITALS: BP 110/82; PULSE 99; RESP 16; O2SAT 100
== END 2022-04-16 18:30 | disposition home or self-care (01) ==
PROVIDERS: Emergency Provider Emergency Medicine; PCP Internal Medicine
DX: R42 Dizziness and giddiness (principal); F41.9 Anxiety disorder, unspecified; F32.9 Major depressive disorder, single episode, unspecified; E11.9 Type 2 diabetes mellitus without complications; Z79.4 Long term (current) use of insulin; I10 Essential (primary) hypertension; E78.5 Hyperlipidemia, unspecified
CPT/HCPCS: 36415; 80053; 82948; 85025; 93005; 96361; 96374; 99284; J1815; J7030

== ENCOUNTER 2022-12-02 09:22 | Outpatient (CLI) | payer MEDICARE, SELFPAY ==
[2022-12-02 09:45] LABS: Hematocrit 48.1 % (42.0-52.0); Hemoglobin 15.4 g/dL (14.0-18.0); Mean Corpuscular Hemoglobin 31.3 pg (26-34); Mean Corpuscular Volume 97.8 fl (80-100); Mean Platelet Volume 9.4 fl (7.4-10.4); Platelet Count Result 261 k/mm3 (150-375); Red Blood Count 4.92 M/mm3 (4.6-6.20); Red Cell Distribution Width 14.5 % (11.5-14.5)
[2022-12-02 09:58] LABS: Alanine Aminotransferase 29 U/L (6-50); Alkaline Phosphatase 109 U/L (38-126); Anion Gap 5 mmol/L (8-16); Aspartate Amino Transferase 22 U/L (17-59); Bilirubin,Total 0.8 mg/dL (0.2-1.3); Blood Urea Nitrogen 15 mg/dL (9-20); Calcium 8.5 mg/dL (8.4-10.2); Carbon Dioxide 31 mmol/L (22-30); Chloride 104 mmol/L (98-107); Cholesterol 115 mg/dL (0-200); Estimated Glomerular Filt Rate > 60; Glucose 135 mg/dL (65-110); HDL Direct 23 mg/dL; Potassium 4.2 mmol/L (3.4-5.0); Sodium 140 mmol/L (137-145); Triglycerides 90 mg/dL (<150)
[2022-12-02 10:10] LABS: LDL Cholesterol Direct 74 mg/dL
[2022-12-02 10:13] LABS: Creatinine Urine 72.4 mg/dL
[2022-12-02 10:17] LABS: MALB Creatinine Ratio 33.6 mg/g (0-30); Microalbumin Urine Random 24.3 mg/L (0-16.7)
[2022-12-02 10:28] LABS: Prostate Specific Antigen 2.2 ng/mL (< OR = 4.0); Thyroid Stimulating Hormone 0.902 uIU/mL (0.465-4.680)
[2022-12-02 11:04] LABS: Folic Acid 4.7 ng/mL (2.76->20)
== END 2022-12-02 09:23 | disposition home or self-care (01) ==
PROVIDERS: PCP Physician Assistant; Visit Provider Physician Assistant
DX: R53.83 Other fatigue (principal); Z12.5 Encounter for screening for malignant neoplasm of prostate; E11.9 Type 2 diabetes mellitus without complications; I10 Essential (primary) hypertension
CPT/HCPCS: 36415; 80053; 80061; 82043; 82607; 82746; 84153; 84443; 85027; G0103

== ENCOUNTER 2023-12-16 09:28 | Outpatient (CLI) | payer MEDICARE, SELFPAY ==
[2023-12-16 10:21] LABS: Basophils Absolute Auto 0.1 K/mm3 (0.0-0.1); Basophils Percent Auto 0.7 % (0.2-1.2); Eosinophils Absolute Auto 0.3 K/mm3 (0-0.3); Eosinophils Percent Auto 2.3 % (0-4.4); Hematocrit 51.5 % (42.0-52.0); Hemoglobin 16.3 g/dL (14.0-18.0); Immature Granulocyte Absolute 0.04 K/mm3 (0.00-0.031); Immature Granulocyte Percent A 0.3 % (0-0.5); Lymphocytes Absolute Auto 2.31 K/mm3 (0.9-3.2); Mean Corpuscular HGB Conc 31.7 g/dl (32-36); Mean Corpuscular Hemoglobin 31.5 pg (26-34); Mean Corpuscular Volume 99.4 fl (80-100); Mean Platelet Volume 9.5 fl (7.4-10.4); Monocytes Absolute Auto 0.8 K/mm3 (0.1-0.6); Monocytes Percent Auto 6.2 % (2.6-8.5); Neutrophils Absolute Auto 8.7 K/mm3 (1.3-6.7); Neutrophils Percent Auto 71.5 % (45.5-73.1); Platelet Count Result 273 k/mm3 (150-375); Red Blood Count 5.18 M/mm3 (4.6-6.20); Red Cell Distribution Width 14.1 % (11.5-14.5); White Blood Count 12.1 K/mm3 (4.5-10.0)
[2023-12-16 10:37] LABS: Alanine Aminotransferase 35 U/L (6-50); Albumin Level 4.4 g/dL (3.5-5.1); Alkaline Phosphatase 108 U/L (38-126); Anion Gap 6 mmol/L (4-12); Aspartate Amino Transferase 28 U/L (17-59); Bilirubin,Total 1.2 mg/dL (0.2-1.3); Blood Urea Nitrogen 14 mg/dL (9-20); Calcium 8.8 mg/dL (8.4-10.2); Carbon Dioxide 29 mmol/L (22-30); Chloride 104 mmol/L (98-107); Cholesterol 120 mg/dL (0-200); Estimated Glomerular Filt Rate > 60; Glucose 157 mg/dL (65-110); HDL Direct 27 mg/dL; Potassium 4.2 mmol/L (3.4-5.0); Sodium 139 mmol/L (137-145); Triglycerides 98 mg/dL (<150)
[2023-12-16 10:47] LABS: LDL Cholesterol Direct 76 mg/dL
[2023-12-16 10:57] LABS: Creatinine Urine 67.6 mg/dL
[2023-12-16 11:02] LABS: Microalbumin Urine Random 21.6 mg/L (0-16.7)
[2023-12-16 11:09] LABS: Prostate Specific Antigen 2.4 ng/mL (< OR = 4.0)
[2023-12-16 11:10] LABS: Thyroid Stimulating Hormone 0.991 uIU/mL (0.465-4.680)
[2023-12-16 11:32] LABS: Hemoglobin A1C 7.3 % (<5.7)
[2023-12-16 11:45] LABS: Folic Acid 5.5 ng/mL (2.76->20)
== END 2023-12-16 09:29 | disposition home or self-care (01) ==
LOC: ANHLAB 09:32
PROVIDERS: PCP Physician Assistant; Visit Provider Physician Assistant
DX: Z12.5 Encounter for screening for malignant neoplasm of prostate (principal); E11.9 Type 2 diabetes mellitus without complications; R53.83 Other fatigue
CPT/HCPCS: 36415; 80053; 80061; 82043; 82607; 82746; 83036; 84153; 84443; 85025; G0103

== ENCOUNTER 2025-05-13 07:09 | Outpatient (CLI) | payer MEDICARE, SELFPAY ==
--- NOTE | 2025-05-13 07:29 | ECHO_ITS ---
Patient Info Name: Mike Anders Age: 70 years : 1955 Gender: Male Ht: 69 in Wt: 222 lbs BSA: 2.25 m2 HR: 72 bpm BP: 122 / 65 mmHg Technical Quality: Good Exam Date: 05/13/2025 8:17 AM Patient Status: O Admit Date: 05/13/2025 Exam Type: CA echo doppler color flow Complete two-dimensional, color flow and Doppler transthoracic echocardiogram is performed. Oral Health Therapist: Rebecca James Attending Provider: Semaj Erickson DO Summary 1. Complete two-dimensional, color flow and Doppler transthoracic echocardiogram is performed. 2. Left ventricular chamber dimension is normal. 3. Left ventricular systolic function is normal, estimated at 60-65. 4. There is mild concentric increased left ventricular wall thickness. 5. The left ventricular diastolic function is grade I diastolic dysfunction. 6. E/e' 14 is mildly elevated. 7. Left atrial chamber dimension is mildly enlarged. 8. The aortic valve is not well visualized. Cannot determine number of aortic valve leaflets. 9. There is moderate aortic valve sclerosis. 10. There is very mild aortic valve stenosis with a peak velocity of 178 cm/s, mean gradient of 6 mmHg, and aortic valve area of 2.2 cm2. 11. The mitral valve has a moderately calcified annulus. 12. There is trace tricuspid valve regurgitation. 13. No pulmonary hypertension, estimated pulmonary arterial systolic pressure is 25 mmHg. Left Ventricle E/e' 14 is mildly elevated. Left ventricular chamber dimension is normal. Left ventricular systolic function is normal, estimated at 60-65. There is mild concentric increased left ventricular wall thickness. The left ventricular diastolic function is grade I diastolic dysfunction. Right Ventricle Right ventricular chamber dimension is normal. Right ventricular systolic function is normal and with normal TAPSE 2.3 cm. Left Atria Left atrial chamber dimension is mildly enlarged. Right Atria Right atrial chamber dimension is normal. Aortic Valve The aortic valve is not well visualized. Cannot determine number of aortic valve leaflets. There is moderate aortic valve sclerosis. There is very mild aortic valve stenosis with a peak velocity of 178 cm/s, mean gradient of 6 mmHg, and aortic valve area of 2.2 cm2. There is no aortic valve regurgitation. Pulmonic Valve There is no pulmonic regurgitation. Mitral Valve The mitral valve has a moderately calcified annulus. There is no mitral valve stenosis. There is no mitral valve regurgitation. Tricuspid Valve There is trace tricuspid valve regurgitation. No pulmonary hypertension, estimated pulmonary arterial systolic pressure is 25 mmHg. Pericardium/Pleural There is no pericardial effusion. Inferior Vena Cava Normal inferior vena cava with >50% collapse upon inspiration consistent with normal right atrial pressure, 5 mmHg. Aorta The aortic root size at the sinus of Valsalva is normal. Left Ventricular Outflow Tract Name Value Normal LVOT 2D LVOT Diameter 2.0 cm LVOT Doppler LVOT Peak Velocity 121 cm/s LVOT Peak Gradient 6 mmHg LVOT Mean Gradient 3 mmHg LVOT VTI 29 cm LVOT VTI/AV VTI Ratio 0.7 LVOT Stroke Volume 91 ml LVOT CO 6.5 l/min LVOT CI 2.9 l/min/m2 Pulmonic Valve Name Value Normal RVOT Doppler RVOT Peak Velocity 103 cm/s RVOT Peak Gradient 4 mmHg PV Doppler PV Peak Velocity 106 cm/s PV Peak Gradient 4 mmHg Mitral Valve Name Value Normal MV Diastolic Function MV E Peak Velocity 110 cm/s MV A Peak Velocity 90 cm/s MV E/A 1.2 MV Decel Time (PW) 254 ms MV Annular TDI MV E/e' (Septal) 14.7 MV E/e' (Lateral) 13.9 MV E/e' (Average) 14.3 Tricuspid Valve Name Value Normal TV Regurgitation Doppler TR Peak Velocity 225 cm/s TR Peak Gradient 20 mmHg Estimated PAP/RSVP RA Pressure 5 mmHg <=5 PA Systolic Pressure 25 mmHg <36 RV Systolic Pressure 25 mmHg <36 Aortic Valve Name Value Normal AV Doppler AV Peak Velocity 178 cm/s AV Peak Gradient 13 mmHg AV Mean Gradient 6 mmHg AV VTI 42 cm AV Area (Cont Eq VTI) 2.2 cm2 >=3.0 AV Area (Cont Eq Bhaskar) 2.1 cm2 AV DI (Bhaskar) 0.68 AV Regurgitation 2D LVOT Area 3.1 cm2 Ventricles Name Value Normal LV Dimensions 2D/MM IVS Diastolic Thickness (2D) 1.1 cm 0.6-1.0 LVID Diastole (2D) 4.1 cm 4.2-5.8 LVIW Diastolic Thickness (2D) 1.3 cm 0.6-1.0 LVID Systole (2D) 2.5 cm 2.5-4.0 LVOT Diameter 2.0 cm LV Mass (2D Cubed) 177.22 g 88.00-224.00 LV Mass Index (2D Cubed) 79 g/m2 49-115 Relative Wall Thickness (2D) 0.66 <=0.42 LV Fractional Shortening/Ejection Fraction 2D/MM LV Fractional Shortening (2D) 40 % 25-43 LV EF (2D Teichholz) 71 % LV Diastolic Volume (4C MOD) 93 ml LV EF (4C MOD) 60 % LV Diastolic Volume (2C MOD) 112 ml LV EF (2C MOD) 67 % LV Diastolic Volume (BP MOD) 102 ml 62-150 LV Diastolic Volume Index (BP MOD) 45 ml/m2 34-74 LV Systolic Volume (BP MOD) 38 ml 21-61 LV Systolic Volume Index (BP MOD) 17 ml/m2 11-31 LV EF (BP MOD) 62 % 52-72 LV Diastolic Length (4C) 7.9 cm LV Systolic Length (4C) 6.8 cm LV Stroke Volume (4C MOD) 55 ml Atria Name Value Normal LA Dimensions LA Volume (4C A-L) 49 ml LA Volume (BP A-L) 42 ml RA Dimensions RA Area (4C) 11.7 cm2 <=18.0 Report Signatures
== END 2025-05-13 07:10 | disposition home or self-care (01) ==
PROVIDERS: PCP Nurse Practitioner; Visit Provider Internal Medicine Cardiovascular Disease
DX: R93.1 Abnormal findings on diagnostic imaging of heart and coronary circulation (principal); I47.10 Supraventricular tachycardia, unspecified
CPT/HCPCS: 93306